=== PATIENT | male | born 1990 | race Caucasian/White ===

== ENCOUNTER 2019-03-10 09:10 | Emergency (ER) | payer SELFPAY ==
[2019-03-10 09:11] VITALS: BP 129/83; PULSE 80; RESP 18; TEMP 36.6; O2SAT 99; BMI 31.1
--- NOTE | 2019-03-10 09:29 | ED.VIS.GEN ---
History of Present Illness Chief Complaint: Abd Pain Informant: Patient Onset: Month(s) - 2 Context: Onset with activity Timing: Continuous Current Severity: Moderate Maximum Severity: Moderate Narrative: Patient presents with chronic back pain. 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 He has no radiation to his legs, he has no urinary retention symptoms no bowel compromise or perirectal numbness. He does tell me that some of his back pain radiates into his abdomen and somewhat in the testicles. He does not have any testicle pain with palpation he has no dysuria he has no nausea or vomiting or diarrhea. Pain is moderate to severe depending on the movement. It is worse with bending twisting or picking up objects Past Medical History - Allergies and Home Meds Allergies/Adverse Reactions: Allergies No Known Allergies Allergy (Verified 03/10/19 09:13) Primary Care Physician: Orville Blas MD [Primary Care Provider] - 3-5 Days Past Medical History: None Surgical History: noncontributory Smoking Status: Current some day smoker Review of Systems All systems negative except as indicated General: Denies: Chills, Fever Cardiovascular: Denies: Chest pain Respiratory: Denies: Dyspnea, Cough Gastrointestinal: Reports: - - Back pain radiating to the abdomen as in HPI Genitourinary: Denies: Dysuria, Hematuria Musculoskeletal: Reports: Back pain Neurological: Denies: Weakness, Parasthesia, Numbness Hematologic: Denies: Easy bruising Physical Exam Vital Signs/Narrative: Vital Signs Temp Pulse Resp BP Pulse Ox 03/10/19 09:11 98 F 80 18 129/83 H 99 General: Well nourished, Well developed Eyes: Perrl ENT: Moist mucous membranes Neck: Supple Cardiovascular: Regular rate, Regular rhythm, No murmurs Respiratory: No distress Abdomen: Soft, Nontender, Nondistended, - - Suprapubic mass Back: - - There is bilateral paraspinal tenderness, loss of lordosis Extremities: No edema. Negative for: Tenderness Skin: Normal color, No rash Neurological: - - Patient has equal 1+ patellar reflexes, he has normal plantarflexion and dorsiflexion of both feet and great toes bilaterally. Psychological: Normal affect Diagnostic/Tx/Re-eval - Medical Decision Making Patient has lumbar pain, it does radiate to bilateral abdominal region, I still do not believe this is a central cord impingement, this is likely muscular and ligamentous in etiology, it stems from his job, he does not meet criteria for an emergent MRI, I will treat him symptomatically. I did show him some stretching exercises as well as proper posture. I will discharge him in stable condition. He will need follow-up. ED Disposition - Plan for ED Patient: Disposition: Home or Assisted Living Diagnosis: Lumbar strain Instructions: Relieving Back Pain, Back Exercises: Bridge, Back Safety: Sitting, Back Safety: Standing Prescriptions: Oxycodone HCl/Acetaminophen [Percocet 5/325] 1 tab PO Q6H PRN PRN 3 Days #12 tab PRN Reason: Pain Prescription Printed Tizanidine HCl 4 mg PO BID PRN #30 tab PRN Reason: Muscle Spasm Prescription Printed Referrals: Orville Blas MD [Primary Care Provider] -
[2019-03-10] MEDS: diazePAM 5 MG Tablet PO (09:51)
[2019-03-10] MEDS: oxyCODONE 5 MG Tablet 10 MG PO (09:51)
[2019-03-10] MEDS: Triamcinolone Acetonide 40 MG/ML Vial IM (09:51)
== END 2019-03-10 10:09 | disposition home or self-care (01) ==
LOC: ED 09:45
PROVIDERS: Emergency Provider Emergency Medicine; Family Provider Family Medicine; PCP Family Medicine
DX: S39.012A Strain of muscle, fascia and tendon of lower back, initial encounter (principal); X58.XXXA Exposure to other specified factors, initial encounter; Y93.89 Activity, other specified; F17.200 Nicotine dependence, unspecified, uncomplicated
CPT/HCPCS: 99282

== ENCOUNTER → 2023-03-08 | Outpatient (CLI) | payer BC, SELFPAY ==
[2023-03-08 15:24] LABS: Absolute Lymphocyte Count 1.76 X10^3/uL (0.83-4.51); Absolute Neutrophil Count 3.9 X10^3/uL (2.0-7.7); Basophil# 0.03 X10^3/uL; Basophil% 0.5 % (0-1); Eosinophil# 0.01 X10^3/uL; Eosinophils% 0.2 % (0-5); Hematocrit 44.6 % (40-54); Hemoglobin 15.1 g/dL (13.0-16.5); Lymphocyte # 1.76 X10^3/ul (0.83-4.51); Lymphocyte % 28.2 % (19-41); Mean Corp Hgb Conc 33.9 g/dL (32-36); Mean Corpuscular Hgb 29.7 pg (27.0-32.0); Mean Corpuscular Volume 87.6 fL (80-94); Mean Platelet Vol. 10.4 fl (6.2-12.0); Monocyte# 0.52 X10^3/uL; Monocyte% 8.3 % (0-10); NRBC Flagged by Analyzer 0 % (0-5); Neutrophil # 3.89 X10^3/uL (2.7-7.7); Neutrophil % 62.3 % (47-70); Platelet Count 236 K/mm3 (150-450); RBC Distribution Width CV 11.9 % (11.6-14.6); RBC Distribution Width SD 38.4 fl (35.1-43.9); Red Blood Count 5.09 M/mm3 (4.6-6.2); White Blood Count 6.2 K/mm3 (4.4-11.0)
[2023-03-08 16:15] LABS: AST(SGOT) 20 U/L (15-37); Alanine Aminotransfer ALT/SGPT 46 U/L (16-61); Albumin, Serum 3.8 g/dL (3.2-5.0); Alkaline Phosphatase 86 U/L (45-117); Anion Gap 6 (5-15); BUN 13 mg/dL (7-18); BUN/Creat Ratio 13.7 RATIO (10-20); Chloride 106 mmol/L (98-107); Cholesterol 161 mg/dL (200); Creatinine, Serum 0.95 mg/dL (0.70-1.30); EST Glomerular Filtration Rate 96 mL/min (>60); Est Glom Filt Rate - Afr Amer 116 mL/min (>60); Globulin 3.7 g/dL (2.2-4.2); Glucose 114 mg/dL (74-106); High Density Lipoprotein 38 mg/dL; Potassium 3.9 mmol/L (3.5-5.1); Protein, Total 7.5 g/dL (6.4-8.2); Sodium Level 140 mmol/L (136-145); Thyroid Stim Hormone (TSH) 0.65 uIU/mL (0.358-3.74); Triglycerides 241 mg/dL; Very Low Density Lipoprotein 48 mg/dL (5-40)
== END | disposition home or self-care (01) ==
LOC: MFPLAB 12:04
PROVIDERS: PCP Family Medicine; Visit Provider Family Medicine
DX: Z13.1 Encounter for screening for diabetes mellitus (principal); E66.9 Obesity, unspecified
CPT/HCPCS: 36415; 80053; 80061; 84443; 85025

== ENCOUNTER 2025-03-19 08:56 | Emergency (ER) | payer OTHER, BC, SELFPAY ==
[2025-03-19 08:57] VITALS: BP 125/70; PULSE 88; RESP 16; TEMP 36.8; O2SAT 99; BMI 31.4
--- NOTE | 2025-03-19 09:11 | RAD_ITS ---
PROCEDURE: FINGER(S) MIN 2 VIEWS 03/19/2025 REASON FOR EXAM: FOREIGN BODY TECHNIQUE: Procedure Code: RADFIN Modality: DX Procedure: FINGER(S) MIN 2 VIEWS Laterality: Right fingers. COMPARISON: None FINDINGS: Bones: No bony abnormality. Joints: Normal alignment. Soft tissues: No radiopaque foreign body. Soft tissue swelling. Other: RAD/Finger(s) Min 2 Views IMPRESSION: Soft tissue swelling. No radiopaque foreign body is seen. Reading Location: [id number]
--- NOTE | 2025-03-19 09:11 | EDS_ITS ---
HPI History of Present Illness Chief Complaint: General Illness Detail of Chief Complaint: Foreign body right middle Informant: patient Narrative Narrative: Patient presents to the emergency department with concern for foreign body to his right middle finger. Patient states that while at work 3-1/2 weeks ago picked up a pallet and a splinter went into the base of his middle finger. He was seen in urgent care where they attempted removal and they thought they had removed it. He was put on antibiotics. Followed up a second time and he had another attempted incision and removal and was placed on a second round of antibiotics. Patient presents today because he has continued swelling and drainage from the wound. Yesterday had subjective fever. He has had some congestion and some bodyaches. One of his children also ill with upper respiratory symptoms. Patient is right-hand dominant. PFSH PFSH Medical History no medical history Home Medications ?Medication ?Instructions ?Recorded ?Last Taken ?Type tizanidine 4 mg tablet 4 mg PO BID PRN Muscle Spasm #30 03/10/19 Unknown Rx tabs Allergy/AdvReac Type Severity Reaction Status Date / Time No Known Allergies Allergy Verified 03/19/25 08:57 Family History no significant family his Surgical History no surgical history Social History Smoking Status: Never smoker ROS ROS ED Review of Systems ROS Unobtainable: other Constitutional Constitutional ED: Reports fever(s) and lethargy; Denies chills, sweats or weigh t loss Eyes Eyes: Denies blurry vision, change in vision or diplopia ENT ENT ED: Denies rhinorrhea or sore throat Cardiovascular Cardiovascular: Denies chest pain, orthopnea or racing heartbeat Respiratory/Chest Respiratory/Chest: Reports dyspnea and dyspnea on exertion; Denies cough, orthopnea or sputum Gastrointestinal Gastrointestinal: Denies abdominal pain, diarrhea, nausea or vomiting Genitourinary Genitourinary ED: Denies dysuria, hematuria or urinary frequency Musculoskeletal Musculoskeletal: Reports other Details: Foreign body right middle finger ; Denies arthralgias, back pain, myalgias or neck pain Integumentary Denies abscess, Abrasions or rash Neurologic Neurologic: Denies headache(s) or weakness Psychiatric Psychiatric: Denies anxiety, depression or suicidal thoughts Endocrine Endocrinology: Denies polydipsia, polyphagia or polyuria Hematologic/Lymphatic Hematologic/Lymphatic: Denies easy bleeding, easy bruising or lymphadenopathy Allergic/Immunologic Allergic/Immunologic ED: Denies mouth swelling, tongue swelling or urticaria EXAM Physical Exam Const Vital Signs: 03/19/25 08:57 03/19/25 09:04 Temperature 98.3 F Temperature Source Oral Pulse Rate 88 Respiratory Rate 16 Respiratory Pattern Normal Blood Pressure 125/70 H Blood Pressure Mean 88 Pulse Ox 99 Oxygen Delivery Method Room Air Positive well nourished and well developed General Appearance ED: well developed and NAD HEENT Reports TM's clear and moist mucous membranes normocephalic and atraumatic; Negative for trauma or tenderness Tympanic Membrane ED: Yes TM's clear Eyes PERRL and EOMs intact bilaterally General Eye ED: Negative for pale conjunctiva or scleral icterus Neck no lymphadenopathy, supple and no JVD General: Negative for tenderness Chest Wall inspection of chest normal and palpation of chest normal Chest: Negative for tenderness Resp normal respiratory effort and clear to auscultation bilaterally Effort and Inspection: Negative for respiratory distress or pain with movement Auscultation: Negative for rhonchi, wheezes or diminished lung sounds Cardio regular rate, regular rhythm, S1 normal heart sound, S2 normal heart sound and no murmurs Peripheral Pulses: pulses 2+ throughout GI normal to inspection, nondistended, normoactive bowel sounds, soft to palpation, non-tender, non-distended and no masses Back/Spine no CVA tenderness and no thoracic nor lumbar tenderness Extremity Extremity Narrative: Right middle finger-patient does have a circular wound to the palmar aspect base of the middle finger and when compressed expresses some purulent debris. There is diffuse soft tissue swelling. Limited range of motion in flexion secondary to pain and swelling. Neurovascularly intact distally General Extremety ED: Negative for edema General Extremity: Negative for edema Neuro oriented x3, CN's II-XII intact bilaterally, no sensory deficits noted and gait normal Sensorium / Orientation: awake, alert, oriented to person, oriented to place and oriented to time Motor Exam: strength 5/5 throughout and strength abnormal Psych mental status grossly normal Skin no rashes or lesions noted and no wounds MDM MDM MDM Narrative Medical decision making narrative: Patient presents with concern for retained foreign body to the right middle finger. X-rays obtained showed no obvious radiopaque foreign bodies. I did order testing for COVID flu and RSV which will be pending. Patient case discussed with hand surgeon at [facility] as we currently do not have hand surgery available. I spoke with Dr. Norwood who accepted transfer of patient to [facility] for evaluation and treatment. Concern is for developing flexor tenosynovitis due to retained foreign body. Radiography Diagnostic Testing: Clinical Impression(s) from Imaging Studies Finger X-Ray 03/19/25 09:11 IMPRESSION: Soft tissue swelling. No radiopaque foreign body is seen. Reading [id number]-view x-rays of the right middle finger obtained interpreted by myself as evidence of soft tissue swelling without evidence of foreign body. Radiology in agreement Discharge Plan Triage Chief Complaint: General Illness ED Provider: Da Estrada Dx/Rx/DC Orders Clinical Impression: Foreign body of right middle finger Prescriptions: No Action tizanidine 4 MG tablet 4 mg PO BID PRN (Reason: Muscle Spasm) Qty: 30 0RF Primary Care Provider: Taniya Amaro Referrals: Taniya Amaro MD [Primary Care Provider] - Print Language: Gabonese Disposition Disposition: DC/Tx to Another Type of HCF
[2025-03-19 10:29] VITALS: BP 130/80; PULSE 89; RESP 16; TEMP 36.1; O2SAT 98
== END 2025-03-19 10:30 | disposition other institution (70) ==
PROVIDERS: Emergency Provider Emergency Medicine; PCP Family Medicine; Visit Provider Emergency Medicine
DX: S60.452A Superficial foreign body of right middle finger, initial encounter (principal); W45.8XXA Other foreign body or object entering through skin, initial encounter; Y93.89 Activity, other specified; Y99.0 Civilian activity done for income or pay; Z18.33 Retained wood fragments
CPT/HCPCS: 73140; 87631; 99283